=== PATIENT | male | born 1975 | race Caucasian/White ===

== ENCOUNTER → 2017-09-28 | Outpatient (CLI) | payer OTHER ==
[~2017-09-28] MED LIST: BUPR2MIS PO; CTP2 PO; LISI-725 PO; PRT40 PO
--- NOTE | 2017-09-28 15:27 | DIAGNOSTIC IMAGING REPORT ---
MRI OF THE LUMBAR SPINE WITHOUT CONTRAST CLINICAL HISTORY: Left leg pain and weakness. Degenerative disc disease. COMPARISON STUDY: Lumbar spine MRI December 13, 2014. TECHNIQUE: Utilizing a 1.5 Nica magnet and dedicated coil, multiplanar, multiecho imaging of the lumbar spine was performed without IV contrast. FINDINGS: For purposes of numbering on this exam, the L5-S1 disc space is assigned to axial image 23 of 25. There are left pedicle screws at the L4 and L5 levels with a laminectomy. There is been an interval L3-L4 laminectomy when compared to exam of December 13, 2014. There is no compression fracture. There is no suspicious marrow replacement. No intracanalicular mass or fluid collection is present. The conus terminates at the lower T12 level. Paravertebral soft tissues are unremarkable. L1-2: The central canal and neural foramen are patent. L2-3: The central canal and the neural foramen are patent. L3-4: There is mild central canal stenosis due to disc bulge which is improved since exam of December 13, 2014. There is severe left neural foraminal stenosis due to disc bulge, facet arthrosis and possible superimposed left foraminal disc protrusion. This has slightly increased since previous MRI. There is moderate narrowing of the right neural foramen. L4-5: The central canal is patent. There is mild narrowing of both neural foramen. L5-S1: There is disc bulge with a small superimposed central disc protrusion. There is mild narrowing of the central canal and lateral recesses. IMPRESSION: 1. Status post L4-L5 left pedicle screw fusion with laminectomy. Interval L3-L4 laminectomy since exam of December 13, 2014. Mild central canal narrowing at L3-L4 which has improved since previous exam. Mild central canal narrowing at L5-S1. 2. Severe left neural foraminal stenosis at L3-L4 due to disc bulge, facet arthrosis and suspected superimposed left foraminal disc protrusion. This has slightly increased since previous exam. Electronically signed by: Catracho Buck M.D. 09/28/2017 3:25 PM Dictated Date/Time: 09/28/2017 3:15 PM
== END | disposition home or self-care (01) ==
LOC: C.MRI 14:15
PROVIDERS: ATTEND Physician Assistant
DX: M51.9 Unspecified thoracic, thoracolumbar and lumbosacral intervertebral disc disorder (principal); M48.061 Spinal stenosis, lumbar region without neurogenic claudication; R29.898 Other symptoms and signs involving the musculoskeletal system; R29.2 Abnormal reflex

== ENCOUNTER 2017-10-25 17:24 | Emergency (ER) | payer OTHER ==
[~2017-10-25] VITALS: Ht 175.3 cm; Wt 118.9 kg
[2017-10-25 17:29] VITALS: TEMP 36.6; Ht 175.3 cm; Wt 118.9 kg
[2017-10-25] MEDS ORDERED: NRN600 PO (18:10)
[2017-10-25 20:30] LABS: ALBUMIN 3.5 gm/dl (3.4-5.0); CALCIUM 8.4 mg/dl (8.5-10.1); CREATININE 0.8 mg/dl (0.60-1.40); POTASSIUM 3.6 mmol/L (3.5-5.1)
--- NOTE | 2017-10-25 20:32 | DIAGNOSTIC IMAGING REPORT ---
L VENOUS DOPP LOWER EXT UNILAT HISTORY: 42 years-old Male L leg pain acute left leg pain COMPARISON: None available TECHNIQUE: Multiple real-time sonographic images of the left lower extremity deep venous structures were obtained assessing grayscale appearance, color and spectral flow FINDINGS: There is normal flow, phasicity, compressibility and augmentation of the left lower extremity deep venous structures. IMPRESSION: No sonographic evidence of deep venous thrombosis. The above report was generated using voice recognition software. It may contain grammatical, syntax or spelling errors. Electronically signed by: Asim Graff M.D. 10/25/2017 8:31 PM Dictated Date/Time: 10/25/2017 8:30 PM
[2017-10-25 20:33] LABS: TOTAL PROTEIN 7.5 gm/dl (6.4-8.2)
[2017-10-25 21:33] LABS: HEMATOCRIT 42.8 % (42-52); HEMOGLOBIN 15.1 g/dL (14.0-18.0); MEAN CELL VOLUME 85.1 fL (80-100); MEAN CORPUSCULAR HGB CONC 35.3 g/dl (32-36); MEAN PLATELET VOLUME 12.4 fL (7.4-10.4); PLATELET COUNT 122 K/uL (130-400); RED CELL DISTRIBUTION WIDTH CV 13.3 % (11.5-14.5); RED CELL DISTRIBUTION WIDTH SD 41.3 fL (36.4-46.3)
[2017-10-25] MEDS ORDERED: METH4PAK PO (21:37)
--- NOTE | 2017-10-25 21:39 | EMERGENCY ROOM VISIT NOTE ---
History First contact with patient: 17:55 Chief Complaint: LEG PAIN,LEG INJURY Stated Complaint: SEVERE PAIN IN LT THIGH GOING UP/DOWN LEG History of Present Illness The patient is a 42 year old male who presents to the Emergency Room via private vehicle with complaints of "severe pain in left thigh going up/down leg ". The patient states that he has a history of numerous back issues and surgeries. He notes that now he has pain in the left anterior thigh which has been exacerbated over the past 1.5 weeks. The pain is severe. It is rated as a 9/10. He notes he is taking Suboxone. He is Toradol with minimal relief. He states that it radiates from the hip to the left thigh. It only occurs with standing. He denies any swelling or redness. He notes that he has a recent MRI performed and is to see his surgeon in [place] November 16. He notes that Toradol does not seem to help. Heating pad does not help. There is no numbness or paresthesias. Review of Systems A complete 10-point Review of Systems was discussed with the patient, with pertinent positives and negatives listed in the History of Present Illness. All remaining Review of Systems questions can be considered negative unless otherwise specified. Past Medical/Surgical History Medical Problems: (1) Cholelithiasis (2) Chronic pain disorder (3) Hepatitis C (4) Hydrocephalus (5) Hypothyroidism (6) Lumbar spinal stenosis (7) Osteomyelitis Surgical Problems: (1) H/O colonoscopy (2) H/O varicose vein stripping Family History Cancer SISTER Diabetes mellitus MOTHER Heart disease FATHER (Fatal [place] 63 ) MOTHER (Fatal [place] 57) Hypertension BROTHER Lung disease Stroke MOTHER Social History Smoking Status: Former Smoker Alcohol Use: none Drug Use: none, heroin Marital Status: , in relationship Housing Status: lives with significant other Occupation Status: unemployed Current/Historical Medications Scheduled Buprenorphine Hcl-Naloxone Hcl (Suboxone 2-0.5 Mg), 8 MG PO BID Gabapentin (Gabapentin), 600 MG PO QID Lisinopril (Zestril), 20 MG PO QAM Methylprednisolone (Medrol Dosepak), 1 PKT PO DAILY Scheduled PRN Clonidine HCl (Clonidine HCl), 1.5 TAB PO HS PRN for Sleep Physical Exam Vital Signs Date Time Temp Pulse Resp B/P (MAP) Pulse Ox O2 Delivery O2 Flow Rate FiO2 10/25/17 21:45 75 18 182/85 96 Room Air 10/25/17 20:01 74 16 150/81 95 Room Air 10/25/17 17:29 36.6 75 16 126/83 95 Room Air Physical Exam VITAL SIGNS - Vital signs and nursing notes were reviewed. Stable. GENERAL -42-year-old male appearing his stated age who is in no acute distress. Communicates well with provider and answers questions appropriately. SKIN - Without rashes. No meningeal or petechial rash. HEAD - NC/AT. EYES - PERRL with EOMI bilaterally. Sclera anicteric. EARS - No deformities of external structures noted on gross examination bilaterally. NOSE - Midline and without cyanosis. No epistaxis or purulent drainage noted. MOUTH/OROPHARYNX - Without perioral cyanosis. NECK - Neck with FROM. LUNGS - Chest wall symmetric without accessory muscle use, intercostals retractions, or central cyanosis. Normal vesicular breath sounds CTA B/L. No wheezes, rales, or rhonchi appreciated. CARDIAC - RRR with S1/S2. No murmur, rubs, or gallops appreciated. ABDOMEN - Abdominal contour normal without pulsations or visible masses. BS normoactive all four quadrants. No tenderness, palpable masses, hepatosplenomegaly, or ascites noted. EXTREMITIES - No clubbing or peripheral cyanosis. No pretibial edema present. No thigh tenderness. +5/5 strength noted in UE/LE bilaterally. NEUROLOGIC - Cranial nerves II through XII grossly intact. Sensory intact to light touch throughout. Neurovascularly intact in the lower extremity. PSYCH - A&O and cooperates fully with examiner. Pt is very pleasant and interacts well with examiner. Medical Decision & Procedures ER Provider Diagnostic Interpretation: L VENOUS DOPP LOWER EXT UNILAT HISTORY: 42 years-old Male L leg pain acute left leg pain COMPARISON: None available TECHNIQUE: Multiple real-time sonographic images of the left lower extremity deep venous structures were obtained assessing grayscale appearance, color and spectral flow FINDINGS: There is normal flow, phasicity, compressibility and augmentation of the left lower extremity deep venous structures. IMPRESSION: No sonographic evidence of deep venous thrombosis. The above report was generated using voice recognition software. It may contain grammatical, syntax or spelling errors. Electronically signed by: Asim Graff M.D. 10/25/2017 8:31 PM Dictated Date/Time: 10/25/2017 8:30 PM Laboratory Results 10/25/17 20:52 Red Blood Count 5.03, Mean Corpuscular Volume 85.1, Mean Corpuscular Hemoglobin 30.0, Mean Corpuscular Hemoglobin Concent 35.3, Mean Platelet Volume 12.4, Neutrophils (%) (Auto) 47.9, Lymphocytes (%) (Auto) 40.8, Monocytes (%) (Auto) 7.9, Eosinophils (%) (Auto) 2.1, Basophils (%) (Auto) 0.9, Neutrophils # (Auto) 2.54, Lymphocytes # (Auto) 2.16, Monocytes # (Auto) 0.42, Eosinophils # (Auto) 0.11, Basophils # (Auto) 0.05 10/25/17 19:56 Test 10/25/17 19:56 10/25/17 20:52 Anion Gap 7.0 mmol/L (3-11) Est Creatinine Clear Calc Drug Dose 150.0 ml/min Estimated GFR () 125.9 Estimated GFR (Non- 108.6 BUN/Creatinine Ratio 8.2 (10-20) Calcium Level 8.4 mg/dl (8.5-10.1) Total Bilirubin 1.1 mg/dl (0.2-1) Aspartate Amino Transf (AST/SGOT) 220 U/L (15-37) Alanine Aminotransferase (ALT/SGPT) 394 U/L (12-78) Alkaline Phosphatase 129 U/L (45-117) Total Protein 7.5 gm/dl (6.4-8.2) Albumin 3.5 gm/dl (3.4-5.0) Globulin 4.0 gm/dl (2.5-4.0) Albumin/Globulin Ratio 0.9 (0.9-2) White Blood Count 5.30 K/uL (4.8-10.8) Red Blood Count 5.03 M/uL (4.7-6.1) Hemoglobin 15.1 g/dL (14.0-18.0) Hematocrit 42.8 % (42-52) Mean Corpuscular Volume 85.1 fL (80-100) Mean Corpuscular Hemoglobin 30.0 pg (25-34) Mean Corpuscular Hemoglobin Concent 35.3 g/dl (32-36) Platelet Count 122 K/uL (130-400) Mean Platelet Volume 12.4 fL (7.4-10.4) Neutrophils (%) (Auto) 47.9 % Lymphocytes (%) (Auto) 40.8 % Monocytes (%) (Auto) 7.9 % Eosinophils (%) (Auto) 2.1 % Basophils (%) (Auto) 0.9 % Neutrophils # (Auto) 2.54 K/uL (1.4-6.5) Lymphocytes # (Auto) 2.16 K/uL (1.2-3.4) Monocytes # (Auto) 0.42 K/uL (0.11-0.59) Eosinophils # (Auto) 0.11 K/uL (0-0.5) Basophils # (Auto) 0.05 K/uL (0-0.2) RDW Standard Deviation 41.3 fL (36.4-46.3) RDW Coefficient of Variation 13.3 % (11.5-14.5) Immature Granulocyte % (Auto) 0.4 % Immature Granulocyte # (Auto) 0.02 K/uL (0.00-0.02) Medical Decision Patient was seen and evaluated as above in room C9. He has left thigh pain. This appears to be radicular in nature likely stemming from his back. MRI was reviewed. Review was performed of nursing notes and vital signs. After obtaining a thorough history and physical examination the above work up was performed. Ultrasound was obtained in the left lower extremity to rule out DVT. This was negative. Again this is all likely radicular in nature. CBC reveals no concerning leukocytosis or anemia. Slight decrease in platelet count. This is felt to not be emergent. He is to follow with his family doctor. He will be given a Medrol Dosepak. He notes he has had this in the past with some relief. He was offered IV/IM Decadron and declined. The patient was educated upon management, had questions answered prior to discharge , and was discharged home in good condition. In the evaluation and treatment of this patient the following differential diagnoses were entertained: DVT, radicular symptoms, fracture, dislocation, strain, among others. Impression Primary Impression: Leg pain, left Departure Information Dispostion Home / Self-Care Condition GOOD Prescriptions Methylprednisolone (MEDROL DOSEPAK) 4 Mg Ronnell 1 PKT PO DAILY, #1 PKT Prov: Bamat, Tacho W., PA-C 10/25/17 Referrals Toy Horne M.D. (PCP) Patient Instructions My [facility] Additional Instructions You have been treated in the Emergency Department for Back Pain/leg pain. You may continue your regular medications. You have been prescribed a Medrol Dosepak. Take this medication as prescribed. You should take the COMPLETE 6-day course of this medication. This is an anti- inflammatory medicine that will help to minimize your symptoms. For pain control, you can use the following [id number] medicines: - Regular strength (325mg/tab) Tylenol (acetaminophen) 2 tabs every 4-6 hours as needed. Do not exceed 12 tablets in a 24 hour period. Avoid taking more than 3 grams (3000 mg) of Tylenol per day. This includes any other sources of acetaminophen you may take on a regular basis. - Regular strength (200 mg/tab) Advil (ibuprofen) 1-2 tabs every 4-6 hours as needed. Do not exceed a dose of 3200 mg per day. If this is an acute injury, ice can be applied to the area of pain for the first 3 days to help decrease pain and inflammation. After the first 3 days, a heating pad can be used over the area for continued soothing relief. You should schedule a follow-up appointment in 2-3 days with your Primary Care Provider for further evaluation and treatment of your back pain. Return to the Emergency Department if your current symptoms worsen despite treatment course outlined above, or if you develop any of the following symptoms : intractable pain despite aforementioned treatment course, loss of control of your bowel or bladder, numbness or tingling in your groin, or development of a fever.
[2017-10-25 21:45] VITALS: BP 182/85; PULSE 75; O2SAT 96
[2017-10-25 21:59] LABS: BASO % 0.9 %; BASO ABS # 0.05 K/uL (0-0.2); EOS % 2.1 %; EOS ABS # 0.11 K/uL (0-0.5); IG# 0.02 K/uL (0.00-0.02); LYMPH % 40.8 %; LYMPH ABS # 2.16 K/uL (1.2-3.4); MONO % 7.9 %; MONO ABS # 0.42 K/uL (0.11-0.59); NEUT % 47.9 %; NEUT ABS # 2.54 K/uL (1.4-6.5)
== END 2017-10-25 21:49 | disposition home or self-care (01) ==
LOC: C.EDB 17:25 → C.EDC 21:49
DX: M79.652 Pain in left thigh (principal); B19.20 Unspecified viral hepatitis C without hepatic coma; G91.9 Hydrocephalus, unspecified; E03.9 Hypothyroidism, unspecified; M48.061 Spinal stenosis, lumbar region without neurogenic claudication; F11.90 Opioid use, unspecified, uncomplicated; Z87.891 Personal history of nicotine dependence; Z79.899 Other long term (current) drug therapy

== ENCOUNTER 2025-05-19 03:28 | Inpatient (IN) ==
--- NOTE | 2025-05-19 03:59 | Emergency Department Note ---
Impression & Plan Septic shock, Diarrhea admit to the [facility] ED Provider Note NAME: SILVER GUERIN AGE: 50 SEX: Male INFORMANT: Patient ED PROVIDER(S): Tessa Key DO CHIEF COMPLAINT: Near syncope PLAN: Disposition: admit to the [facility] MEDICAL DECISION MAKING: This is a 50-year-old male patient underwent spinal surgery 1 week ago who had vomiting and diarrhea since yesterday and a near syncopal event on the toilet today. Patient does admit to drinking a beer last evening and using Toradol for his pain. Patient's found him on the toilet overnight tonight after an episode of vomiting and diarrhea. He was quite lethargic. EMS was called. BSG was 172. He was quite cold with an axillary temp of 92 degrees. EMS and the explained that the patient had spinal revision surgery 1 week ago and then was hospitalized again just a couple of days ago for postlaminectomy syndrome. The states that he was doing well until last evening when he developed vomiting and diarrhea and nearly passed out on the toilet. On presentation here to the emergency department, the patient was hypotensive and lethargic. He had multiple episodes of diarrhea, dry heaving, and was hypothermic. The patient was felt to be septic with a lactate of 4.5. Initially source was unknown. He was given IV cefepime and then IV vancomycin. The dressings to his back were taken down but appeared unremarkable. He adamantly denied any pain to his back. He continued to have massive amounts of diarrhea. Stool was tested and was negative for C. difficile.. Other laboratory testing revealed a white blood cell count of 18.7. He was hemoconcentrated with a hemoglobin of 19.3 and hematocrit of 59. Creatinine was up at 1.87. He was bolused with 2.5 L of saline which is more than 30 mL/kg of crystalloid. Procalcitonin was normal. Alcohol level was negative. Troponin was elevated at 79.5. There were no ischemic changes noted on his EKG. Transaminases were elevated. Chest x-ray was unremarkable. urinalysis had no obvious signs of infection. Upper respiratory [employer] testing was positive for COVID. [facility] will [facility] for further inpatient care and management of septic shock. Patient will go on for CT scan testing of his chest and abdomen/pelvis. Care/management discussed with: The patient's was at the bedside, validation manager and [facility] T[facility] Nursing notes: reviewed and agree with them. Vital Signs: reviewed and remarkable for hypotension and hypothermia Additional History obtained from: EMS and the patient's Prior/ Outside/ External records reviewed: I reviewed operative records as well as recent inpatient records from his hospitalization for postlaminectomy syndrome Differential Diagnosis: sepsis, septic shock, postsurgical complication, C. difficile colitis, pneumonia, urosepsis, COVID-pneumonia Diagnostics, independently interpreted by me: ECG: Normal sinus rhythm at a rate of [address] segment elevation or signs of ischemia. There is no ectopy. Cardiac Monitoring: Normal sinus rhythm at a rate of 98 Imaging studies: chest x-ray: No acute pulmonary infiltrate or consolidation HPI: 50 year old Male arrives for evaluation of vomiting and diarrhea. patient was found semiresponsive on the toilet after an episode of vomiting and diarrhea. his called EMS because he was extremely lethargic and semiresponsive PAST MEDICAL HISTORY: See Below, PAST SURGICAL HISTORY: recent revision of spinal surgery, SOCIAL HISTORY: lives with his , previous opioid abuse, marijuana use, alcohol use HOME MEDICATIONS: see list ALLERGIES: see list VITALS: See Below PHYSICAL EXAMINATION: HEENT: Head - normocephalic and atraumatic. Pupils are equal, round, and reactive to light. Extraocular eye muscles are intact and sclera are anicteric. Nose - moist nasal mucosa without discharge. Mouth - moist buccal mucosa. Oropharynx is nonerythematous and there is no tonsillar exudate or edema noted. Neck: Supple; no JVD, nuchal rigidity, cervical lymphadenopathy. Heart: Regular rate and rhythm. There is a normal S1 and S2 with no murmurs, clicks, or gallops appreciated. Lungs: Clear to auscultation bilaterally with no wheezes, rales, or rhonchi. Abdomen: Soft, Moderately distended and slightly tender with hyperactive bowel sounds. There are no palpable pulsatile masses or hepatosplenomegaly. There is no guarding, rigidity, or rebound noted. Extremities: No evidence of cyanosis, clubbing, or edema. There are easily palpable peripheral pulses. Neuro:The patient Lethargic but moving all 4 extremities. back: 3 bandages were removed and Steri-Strips were in place. There is no surrounding erythema or significant warmth or edema to the surgical sites. They appear to be well-healing. There is no drainage. Emergency department treatment: Septic protocol; IV normal saline bolus-30 mL/kg according to ideal body weight; IV Zofran; IV cefepime; IV vancomycin Emergency department course: The patient was emergently evaluated in room A-12. A septic protocol was performed. A complete history and physical was performed. 2 IVs were established. A stool specimen was obtained. A portable chest x-ray was performed. He was bolused with IV normal saline solution 30 mL/kg A urine specimen was obtained. Patient was given a dose of IV Zofran. He was given a dose of IV cefepime.. He was given a dose of IV vancomycin. I discussed the case with the [facility] Hospitalist. I kept the patient's abreast of the situation. I have personally spent greater than 70 minutes of critical care time in the direct management of this patient. This includes bedside care, interpretation of diagnostic studies, and testing, discussion with consultants, patient, and family members, and other required patient management activities. This 70 minutes is in excess of all separately billable procedures. Past Med/Surg History Problem List (Updated 05/19/25 @ 15:17 by Tessa Key DO) Diarrhea (Acute) Septic shock (Acute) Severe sepsis Postlaminectomy syndrome of lumbar region Chronic pain disorder (Chronic) Hypothyroidism (Chronic) Lumbar spinal stenosis (Chronic) Medical History Obesity Hypertension Cardiac murmur "Born with it" [place] DSE 09/2015: Trace MR/TR No murmur noted at PAT visit 04/11/25 Hx of colonic polyps Chronic pain disorder Hypothyroidism Per patient, patient unsure Hydrocephalus s/p surgery 10+ years ago No issues since Hepatitis C Hx, s/p 12 week treatment completion 5 years ago "Cleared" Osteomyelitis of right humerus Remote hx, treated "right humerus Staph aureus (MSSA) 2000" Lumbar spinal stenosis Surgical History Hx of brain surgery Drained fluid r/t hydrocephalus, no shunt (10+ years ago) Hx of laminectomy x2 S/P insertion of spinal cord stimulator Advised to bring remote DOS 2019 Hx of colonoscopy with polypectomy History of cholecystectomy History of varicose vein stripping Left leg (10+ years) Family History Other Heart disease Hypertension Social History Smoking Status: Unknown if ever smoked Tobacco Type: Cigarettes and Smokeless Tobacco (Dip or Chew) Second Hand Exposure: No; Do You Dip or Chew Tobacco: Yes (Recently quit (~8 days ago)- Advised); Hx Alcohol Use: Yes Alcohol type: beer Hx Substance Use: No Preferred Language: [place] Communication Ability: Effective Certified Legal Secretary Specialist Required: No Beliefs That Will Affect Care: None marital status: Current Living Situation: Spouse current occupational status: unemployed Feels Safe at Home: Yes Assistive Devices: None Allergies Allergies Allergy/AdvReac Type Severity Reaction Status Date / Time adhesive Allergy Intermediate Redness, Verified 05/10/25 06:47 skin irritation, blistering (with group home use) latex Allergy Intermediate Rash Verified 05/10/25 06:47 Home Meds Home Medications Medication Instructions Recorded Confirmed clonidine HCl 0.1 mg tablet 0.1 mg PO BID PRN Sleep 06/18/18 05/19/25 dicyclomine 10 mg capsule 10 mg PO QID PRN Abdominal 06/18/18 05/19/25 Pain/Cramping Lactobacillus acidophilus and 1 cap PO DAILY 04/02/25 05/19/25 rhamnosus 15 billion cell capsule (Probiotic) carvedilol 6.25 mg tablet 6.25 mg PO QAM 04/02/25 05/19/25 cyclobenzaprine 10 mg tablet 10 mg PO UD PRN muscle spasms 04/02/25 05/19/25 gabapentin 600 mg tablet 1,200 mg PO QAM 04/02/25 05/19/25 lisinopril 20 mg tablet 20 mg PO QAM 04/02/25 05/19/25 buprenorphine HCl 8 mg sublingual 8 mg sublingual TID 05/19/25 05/19/25 tablet Results & Data (ED) Vital Signs Vital Signs - 24 hr 05/19/25 03:36 05/19/25 03:36 05/19/25 03:47 Temperature 33.3 C L Temperature Source Axillary Pulse Rate 78 98 H Pulse Rate from SpO2 Sensor Respiratory Rate 24 Respiratory Effort / Characteristics Non-Labored Respiratory Depth Normal Blood Pressure 129/88 Blood Pressure Mean 101 Pulse Oximetry 96 Oxygen Delivery Method Nasal Cannula Oxygen Flow Rate 4 Sepsis Recent Fever Within 48 Hours No Sepsis New/Unexplained Change in Mental Status Yes Sepsis Action Taken by Nursing Physician Notified Oxygen Flow Rate - Titration Pulse Oximetry Post Tiitration 05/19/25 03:47 05/19/25 03:47 05/19/25 03:51 Temperature Temperature Source Pulse Rate 98 H Pulse Rate from SpO2 Sensor 99 H Respiratory Rate 17 Respiratory Effort / Characteristics Respiratory Depth Blood Pressure Blood Pressure Mean Pulse Oximetry 88 L 99 Oxygen Delivery Method Nasal Cannula Room Air Nasal Cannula Oxygen Flow Rate 3 0 Sepsis Recent Fever Within 48 Hours Sepsis New/Unexplained Change in Mental Status Sepsis Action Taken by Nursing Oxygen Flow Rate - Titration 3 Pulse Oximetry Post Tiitration 97 05/19/25 03:56 05/19/25 04:03 05/19/25 04:03 Temperature Temperature Source Pulse Rate Pulse Rate from SpO2 Sensor Respiratory Rate Respiratory Effort / Characteristics Respiratory Depth Blood Pressure 88/71 L 125/88 125/88 Blood Pressure Mean 75 101 101 Pulse Oximetry Oxygen Delivery Method Oxygen Flow Rate Sepsis Recent Fever Within 48 Hours Sepsis New/Unexplained Change in Mental Status Sepsis Action Taken by Nursing Oxygen Flow Rate - Titration Pulse Oximetry Post Tiitration 05/19/25 04:12 05/19/25 04:24 05/19/25 04:26 Temperature Temperature Source Pulse Rate 101 H 84 Pulse Rate from SpO2 Sensor 98 H 85 Respiratory Rate 20 20 Respiratory Effort / Characteristics Respiratory Depth Blood Pressure Blood Pressure Mean Pulse Oximetry 96 96 97 Oxygen Delivery Method Room Air Oxygen Flow Rate Sepsis Recent Fever Within 48 Hours Sepsis New/Unexplained Change in Mental Status Sepsis Action Taken by Nursing Oxygen Flow Rate - Titration Pulse Oximetry Post Tiitration 05/19/25 04:30 05/19/25 04:30 05/19/25 04:31 Temperature 36.2 C L Temperature Source Rectal Pulse Rate 83 Pulse Rate from SpO2 Sensor 84 Respiratory Rate 25 H Respiratory Effort / Characteristics Respiratory Depth Blood Pressure 91/64 L Blood Pressure Mean 76 Pulse Oximetry 92 Oxygen Delivery Method Oxygen Flow Rate Sepsis Recent Fever Within 48 Hours Sepsis New/Unexplained Change in Mental Status Sepsis Action Taken by Nursing Oxygen Flow Rate - Titration Pulse Oximetry Post Tiitration 05/19/25 04:41 05/19/25 04:41 05/19/25 04:46 Temperature Temperature Source Pulse Rate 83 Pulse Rate from SpO2 Sensor 83 Respiratory Rate 23 Respiratory Effort / Characteristics Respiratory Depth Blood Pressure 102/55 L 59/35 L Blood Pressure Mean 73 45 Pulse Oximetry 96 Oxygen Delivery Method Oxygen Flow Rate Sepsis Recent Fever Within 48 Hours Sepsis New/Unexplained Change in Mental Status Sepsis Action Taken by Nursing Oxygen Flow Rate - Titration Pulse Oximetry Post Tiitration 05/19/25 04:48 05/19/25 04:48 05/19/25 04:53 Temperature Temperature Source Pulse Rate 80 Pulse Rate from SpO2 Sensor 78 Respiratory Rate 17 Respiratory Effort / Characteristics Respiratory Depth Blood Pressure 97/59 L 97/59 L Blood Pressure Mean 77 77 Pulse Oximetry 97 Oxygen Delivery Method Oxygen Flow Rate Sepsis Recent Fever Within 48 Hours Sepsis New/Unexplained Change in Mental Status Sepsis Action Taken by Nursing Oxygen Flow Rate - Titration Pulse Oximetry Post Tiitration 05/19/25 04:55 05/19/25 05:00 05/19/25 05:11 Temperature Temperature Source Pulse Rate 78 77 Pulse Rate from SpO2 Sensor 81 78 Respiratory Rate 15 18 Respiratory Effort / Characteristics Non-Labored Respiratory Depth Normal Blood Pressure Blood Pressure Mean Pulse Oximetry 98 Oxygen Delivery Method Oxygen Flow Rate Sepsis Recent Fever Within 48 Hours Sepsis New/Unexplained Change in Mental Status Sepsis Action Taken by Nursing Oxygen Flow Rate - Titration Pulse Oximetry Post Tiitration 05/19/25 05:14 05/19/25 05:18 05/19/25 05:18 Temperature Temperature Source Pulse Rate 76 Pulse Rate from SpO2 Sensor 76 Respiratory Rate 19 Respiratory Effort / Characteristics Respiratory Depth Blood Pressure 89/59 L 89/59 L Blood Pressure Mean 67 67 Pulse Oximetry 98 Oxygen Delivery Method Oxygen Flow Rate Sepsis Recent Fever Within 48 Hours Sepsis New/Unexplained Change in Mental Status Sepsis Action Taken by Nursing Oxygen Flow Rate - Titration Pulse Oximetry Post Tiitration 05/19/25 05:20 05/19/25 05:21 05/19/25 05:23 Temperature Temperature Source Pulse Rate 74 Pulse Rate from SpO2 Sensor 78 Respiratory Rate 16 Respiratory Effort / Characteristics Respiratory Depth Blood Pressure 103/62 Blood Pressure Mean 76 Pulse Oximetry 98 Oxygen Delivery Method Nasal Cannula Oxygen Flow Rate Sepsis Recent Fever Within 48 Hours Sepsis New/Unexplained Change in Mental Status Sepsis Action Taken by Nursing Oxygen Flow Rate - Titration Pulse Oximetry Post Tiitration 05/19/25 05:26 05/19/25 05:30 05/19/25 05:30 Temperature Temperature Source Pulse Rate 74 Pulse Rate from SpO2 Sensor 75 Respiratory Rate 18 Respiratory Effort / Characteristics Respiratory Depth Blood Pressure 134/68 134/68 Blood Pressure Mean 94 94 Pulse Oximetry 98 Oxygen Delivery Method Oxygen Flow Rate Sepsis Recent Fever Within 48 Hours Sepsis New/Unexplained Change in Mental Status Sepsis Action Taken by Nursing Oxygen Flow Rate - Titration Pulse Oximetry Post Tiitration 05/19/25 05:38 05/19/25 05:41 05/19/25 06:03 Temperature Temperature Source Pulse Rate 73 75 Pulse Rate from SpO2 Sensor 74 82 Respiratory Rate 24 15 Respiratory Effort / Characteristics Non-Labored Respiratory Depth Normal Blood Pressure 122/80 113/74 Blood Pressure Mean 94 87 Pulse Oximetry 95 95 Oxygen Delivery Method Nasal Cannula Oxygen Flow Rate Sepsis Recent Fever Within 48 Hours Sepsis New/Unexplained Change in Mental Status Sepsis Action Taken by Nursing Oxygen Flow Rate - Titration Pulse Oximetry Post Tiitration 05/19/25 06:18 05/19/25 06:36 Temperature Temperature Source Pulse Rate 79 84 Pulse Rate from SpO2 Sensor 80 76 Respiratory Rate 16 19 Respiratory Effort / Characteristics Respiratory Depth Blood Pressure 119/69 119/88 Blood Pressure Mean 85 98 Pulse Oximetry 100 100 Oxygen Delivery Method Oxygen Flow Rate Sepsis Recent Fever Within 48 Hours Sepsis New/Unexplained Change in Mental Status Sepsis Action Taken by Nursing Oxygen Flow Rate - Titration Pulse Oximetry Post Tiitration Laboratory Data 05/19/25 04:15 05/19/25 04:15 Lab Results 05/19/25 05/19/25 05/19/25 Range/Units 04:15 05:04 05:06 WBC 18.70 H (4.8-10.8) K/ul RBC 6.72 H (4.70-6.10) M/uL Hgb 19.3 H (14.0-18.0) g/dl Hct 59.1 H (42.0-52.0) % MCV 87.9 (80.0-100.0) fL MCH 28.7 (25.0-34.0) pg MCHC 32.7 (32.0-36.0) g/dL RDW Std Deviation 42.0 (36.4-46.3) fL RDW Coeff of Chelo 13.9 (11.5-14.5) % Plt Count 278 (130-400) K/uL MPV 11.1 (9.4-12.4) fL Immature Gran % (Auto) 1.7 % Neut % (Auto) 74.4 % Lymph % (Auto) 19.1 % Saunders % (Auto) 2.4 % Eos % (Auto) 1.8 % Baso % (Auto) 0.6 % Neut # (Auto) 13.91 H (1.40-6.50) K/uL Lymph # (Auto) 3.58 H (1.20-3.40) K/uL Saunders # (Auto) 0.44 (0.11-0.59) K/uL Eos # (Auto) 0.33 (0.00-0.50) K/uL Baso # (Auto) 0.12 (0.00-0.20) K/uL Immature Gran # (Auto) 0.32 H (0.01-0.20) K/uL Sodium 135 L (136-145) mmol/L Potassium 4.3 (3.5-5.1) mmol/L Chloride 94 L (98-107) mmol/L Carbon Dioxide 26 (21-32) mmol/L Anion Gap 15 H (3-11) BUN 17 (6-23) mg/dl Creatinine 1.87 H (0.6-1.4) mg/dl Est Cr Clr Drug Dosing 59.2 ml/min eGFR 42.73 BUN/Creatinine Ratio 9.1 L (10-20) Glucose 90 (70-99(Fasting)) mg/dl Lactate 4.5 H* (0.4-2.0) mmol/L Calcium 10.1 (8.6-10.3) mg/dl Magnesium 2.8 H (1.7-2.4) mg/dl Total Bilirubin 1.0 (0.2-1.0) mg/dl Direct Bilirubin TNP AST 55 H (13-39) U/L ALT 83 H (7-52) U/L Alkaline Phosphatase 107 H (34-104) U/L Troponin I High Sens 79.5 H* (0-20) pg/ml Total Protein 7.9 (6.0-8.3) gm/dl Albumin 4.5 (3.4-5.0) gm/dl Procalcitonin 0.24 (0-0.5) ng/ml Stl C. cayetanensis PCR (NotDetected) Stool Rotavirus A PCR (NotDetected) Stl Adenov F 40/41 PCR (NotDetected) Stool Astrovirus (PCR) (NotDetected) Stool Campylobacter PCR (NotDetected) Stl C. diff Tox B Gene (Neg) Stl C. diff 027-NAP1-BI Stool Cryptosporidium PCR (NotDetected) Stl E.coli Shiga Tox PCR (NotDetected) Stl Enterotoxigenic E PCR (NotDetected) Stool EPEC (PCR) (NotDetected) Stool EAEC (PCR) (NotDetected) Stl E. histolytica PCR (NotDetected) Stool Giardia Lamblia PCR (NotDetected) Stool Salmonella PCR (NotDetected) Stool Sapovirus (PCR) (NotDetected) Stl P. shigelloides PCR (NotDetected) Stl Shigella/EIEC PCR (NotDetected) St Y.enterocolitica PCR (NotDetected) Stool Vibrio (PCR) (NotDetected) Stl Vibrio cholerae PCR (NotDetected) Stl Norovirus GI/GII PCR (NotDetected) Ethyl Alcohol mg/dL < 10.0 (<10.0) mg/dl Adenovirus (PCR) Not Detected (NotDetected) B. pertussis DNA (PCR) Not Detected (NotDetected) B.parapertussis DNA PCR Not Detected (NotDetected) C. pneumoniae DNA (PCR) Not Detected (NotDetected) Coronavirus OC43 (PCR) Not Detected (NotDetected) Coronavirus HKU1 (PCR) Not Detected (NotDetected) Coronavirus 229E (PCR) Not Detected (NotDetected) SARS-CoV-2 (PCR) DETECTED A (NotDetected) Coronavirus NL63 (PCR) Not Detected (NotDetected) Human Metapneumovir PCR Not Detected (NotDetected) Influenza Type A (PCR) Not Detected (NotDetected) Influenza Type B (PCR) Not Detected (NotDetected) M. pneumoniae (PCR) Not Detected (NotDetected) Parainfluenza 1 (PCR) Not Detected (NotDetected) Parainfluenza 2 (PCR) Not Detected (NotDetected) Parainfluenza 3 (PCR) Not Detected (NotDetected) Parainfluenza 4 (PCR) Not Detected (NotDetected) RSV (PCR) Not Detected (NotDetected) Entero/Rhino (PCR) Not Detected (NotDetected) 05/19/25 Range/Units 06:01 WBC (4.8-10.8) K/ul RBC (4.70-6.10) M/uL Hgb (14.0-18.0) g/dl Hct (42.0-52.0) % MCV (80.0-100.0) fL MCH (25.0-34.0) pg MCHC (32.0-36.0) g/dL RDW Std Deviation (36.4-46.3) fL RDW Coeff of Chelo (11.5-14.5) % Plt Count (130-400) K/uL MPV (9.4-12.4) fL Immature Gran % (Auto) % Neut % (Auto) % Lymph % (Auto) % Saunders % (Auto) % Eos % (Auto) % Baso % (Auto) % Neut # (Auto) (1.40-6.50) K/uL Lymph # (Auto) (1.20-3.40) K/uL Saunders # (Auto) (0.11-0.59) K/uL Eos # (Auto) (0.00-0.50) K/uL Baso # (Auto) (0.00-0.20) K/uL Immature Gran # (Auto) (0.01-0.20) K/uL Sodium (136-145) mmol/L Potassium (3.5-5.1) mmol/L Chloride (98-107) mmol/L Carbon Dioxide (21-32) mmol/L Anion Gap (3-11) BUN (6-23) mg/dl Creatinine (0.6-1.4) mg/dl Est Cr Clr Drug Dosing ml/min eGFR BUN/Creatinine Ratio (10-20) Glucose (70-99(Fasting)) mg/dl Lactate (0.4-2.0) mmol/L Calcium (8.6-10.3) mg/dl Magnesium (1.7-2.4) mg/dl Total Bilirubin (0.2-1.0) mg/dl Direct Bilirubin AST (13-39) U/L ALT (7-52) U/L Alkaline Phosphatase (34-104) U/L Troponin I High Sens (0-20) pg/ml Total Protein (6.0-8.3) gm/dl Albumin (3.4-5.0) gm/dl Procalcitonin (0-0.5) ng/ml Stl C. cayetanensis PCR Not Detected (NotDetected) Stool Rotavirus A PCR Not Detected (NotDetected) Stl Adenov F 40/41 PCR Not Detected (NotDetected) Stool Astrovirus (PCR) Not Detected (NotDetected) Stool Campylobacter PCR Not Detected (NotDetected) Stl C. diff Tox B Gene Negative Cdiff Gene (Neg) Stl C. diff 027-NAP1-BI NEGATIVE Stool Cryptosporidium PCR Not Detected (NotDetected) Stl E.coli Shiga Tox PCR Not Detected (NotDetected) Stl Enterotoxigenic E PCR Not Detected (NotDetected) Stool EPEC (PCR) Not Detected (NotDetected) Stool EAEC (PCR) Not Detected (NotDetected) Stl E. histolytica PCR Not Detected (NotDetected) Stool Giardia Lamblia PCR Not Detected (NotDetected) Stool Salmonella PCR Not Detected (NotDetected) Stool Sapovirus (PCR) Not Detected (NotDetected) Stl P. shigelloides PCR Not Detected (NotDetected) Stl Shigella/EIEC PCR Not Detected (NotDetected) St Y.enterocolitica PCR Not Detected (NotDetected) Stool Vibrio (PCR) Not Detected (NotDetected) Stl Vibrio cholerae PCR Not Detected (NotDetected) Stl Norovirus GI/GII PCR Not Detected (NotDetected) Ethyl Alcohol mg/dL (<10.0) mg/dl Adenovirus (PCR) (NotDetected) B. pertussis DNA (PCR) (NotDetected) B.parapertussis DNA PCR (NotDetected) C. pneumoniae DNA (PCR) (NotDetected) Coronavirus OC43 (PCR) (NotDetected) Coronavirus HKU1 (PCR) (NotDetected) Coronavirus 229E (PCR) (NotDetected) SARS-CoV-2 (PCR) (NotDetected) Coronavirus NL63 (PCR) (NotDetected) Human Metapneumovir PCR (NotDetected) Influenza Type A (PCR) (NotDetected) Influenza Type B (PCR) (NotDetected) M. pneumoniae (PCR) (NotDetected) Parainfluenza 1 (PCR) (NotDetected) Parainfluenza 2 (PCR) (NotDetected) Parainfluenza 3 (PCR) (NotDetected) Parainfluenza 4 (PCR) (NotDetected) RSV (PCR) (NotDetected) Entero/Rhino (PCR) (NotDetected) Administered Medications Buprenorphine/Naloxone (Buprenorphine/Naloxone 8/2 Mg Tab) 1 tab SL TID JULEE Stop: 06/18/25 13:59 Last Admin: 05/19/25 14:35 Dose: 1 tab Documented By: EDWINA Dexamethasone 6 mg/ Syringe 1.5 mls @ 1 mls/min IV DAILY JULEE Stop: 05/29/25 08:19 Last Admin: 05/19/25 09:47 Dose: 1 mls/min Documented By: EDWINA Cefepime HCl (Maxipime 2000mg) 2,000 mg in 20 mls @ 5 mls/min IV Q8H JULEE; Protocol Stop: 05/21/25 13:59 Last Admin: 05/19/25 14:35 Dose: 5 mls/min Documented By: EDWINA Metronidazole (Flagyl) 500 mg in 100 mls @ 100 mls/hr IV Q8H JULEE; Protocol Stop: 05/23/25 13:59 Last Admin: 05/19/25 14:39 Dose: 100 mls/hr Documented By: EDWINA Lactobacillus Acidophilus (Advanced Probiotic 625 Mg Capsule) 1,250 mg PO DAILY JULEE Stop: 06/18/25 13:29 Last Admin: 05/19/25 14:35 Dose: 1,250 mg Documented By: EDWINA Discontinued Medications Sodium Chloride (Nss) 500 mls @ 999 mls/hr IV .Q31M ONE Stop: 05/19/25 04:17 Last Infusion: 05/19/25 04:55 Dose: Infused Documented By: Admin: 05/19/25 04:22 Dose: 999 mls/hr Documented By: SADE Sodium Chloride (Nss) 500 mls @ 999 mls/hr IV .Q31M ONE Stop: 05/19/25 05:25 Last Infusion: 05/19/25 05:32 Dose: Infused Documented By: Admin: 05/19/25 04:56 Dose: 999 mls/hr Documented By: SADE Cefepime HCl (Maxipime 2000mg) 2,000 mg in 20 mls @ 5 mls/min IV NOW STA; Protocol Stop: 05/19/25 05:00 Last Admin: 05/19/25 05:11 Dose: 5 mls/min Documented By: SADE Sodium Chloride (Nss) 1,000 mls @ 999 mls/hr IV .Q1H1M JULEE Stop: 05/19/25 07:00 Last Infusion: 05/19/25 07:49 Dose: Infused Documented By: MARIA LUISA Admin: 05/19/25 05:34 Dose: 999 mls/hr Documented By: Infusion: 05/19/25 05:34 Dose: Infused Documented By: Admin: 05/19/25 05:12 Dose: 999 mls/hr Documented By: SADE Vancomycin HCl 2,750 mg/ (Sodium Chloride) 555 mls @ 200 mls/hr IV NOW ONE Stop: 05/19/25 07:59 Last Infusion: 05/19/25 09:47 Dose: Infused Documented By: Admin: 05/19/25 05:41 Dose: 200 mls/hr Documented By: SADE Metronidazole (Flagyl) 500 mg in 100 mls @ 100 mls/hr IV NOW STA; Protocol Stop: 05/19/25 06:51 Last Infusion: 05/19/25 08:39 Dose: Infused Documented By: Admin: 05/19/25 07:17 Dose: 100 mls/hr Documented By: MARIA LUISA Lactated Ringer's (Lr) 1,000 mls @ 200 mls/hr IV .Q5H ONE Stop: 05/19/25 12:07 Last Infusion: 05/19/25 13:01 Dose: Infused Documented By: Admin: 05/19/25 07:46 Dose: 200 mls/hr Documented By: MARIA LUISA Ondansetron HCl (Ondansetron Inj 2 Mg/Ml 2 Ml Vial) 4 mg IV NOW STA Stop: 05/19/25 03:48 Last Admin: 05/19/25 04:22 Dose: 4 mg Documented By: SADE Imaging Data Radiologist's Impression: Chest X-Ray 05/19/25 03:47 EXAM: XR chest 1V portable CLINICAL HISTORY: Sepsis TECHNIQUE: A radiograph of the chest was acquired. COMPARISON: 04/11/2025 11:14:18 ASSOCIATE PROFESSOR OF RADIOLOGY. FINDINGS: The left costophrenic angle is not included in the field of view. The lungs are clear and well expanded, with no pulmonary infiltrate or pleural effusion. The cardiomediastinal silhouette is within normal limits. There is no acute osseous abnormality. IMPRESSION: 1. No acute cardiopulmonary disease. Electronically signed by Morris Waggoner 05-19-2025 05:45 AM Discharge Plan Visit Data Chief Complaint: Lethargic Stated Complaint: Lethargic, Diarrhea, Vomiting ED Provider: Tessa Key Discharge Problem: Septic shock, Diarrhea Patient Disposition: Admitted As Inpatient Condition: Critical Discharge Instructions Interventions: ED Discharge Assessment Last Done: 05/19/25 08:28
[2025-05-19] MEDS: ONDANSETRON INJ 2 MG/ML 2 ML VIAL IV STA (04:22)
[2025-05-19] MEDS: SODIUM CHLORIDE 0.9% 500 ML IV ONE ×2 (04:22→04:56)
[2025-05-19 04:46] LABS: Hematocrit (blood only) 59.1 % (42.0-52.0); Hemoglobin 19.3 g/dl (14.0-18.0); Immature Granulocytes # (auto) 0.32 K/uL (0.01-0.20); Immature Granulocytes % (auto) 1.7 %; Mean Corpuscular Hemoglobin 28.7 pg (25.0-34.0); Mean Corpuscular Volume 87.9 fL (80.0-100.0); Platelet Count 278 K/uL (130-400); RDW Standard Deviation 42.0 fL (36.4-46.3); Red Blood Count 6.72 M/uL (4.70-6.10); White Blood Count 18.70 K/ul (4.8-10.8)
[2025-05-19 05:06] LABS: Alanine Aminotransferase 83 U/L (7-52); Albumin Level 4.5 gm/dl (3.4-5.0); Alkaline Phosphatase 107 U/L (34-104); Anion Gap 15 (3-11); Bilirubin,Total 1.0 mg/dl (0.2-1.0); Blood Urea Nitrogen 17 mg/dl (6-23); Calcium 10.1 mg/dl (8.6-10.3); Carbon Dioxide 26 mmol/L (21-32); Chloride 94 mmol/L (98-107); Creatinine Clr Calc Pharmacy 59.2 ml/min; Glucose 90 mg/dl (70-99(Fasting)); Magnesium 2.8 mg/dl (1.7-2.4); Potassium 4.3 mmol/L (3.5-5.1); Sodium 135 mmol/L (136-145); Total Protein 7.9 gm/dl (6.0-8.3)
[2025-05-19] MEDS: CEFEPIME 2000MG 2,000 MG/20 ML SYR IV STA (05:11)
[2025-05-19] MEDS: SODIUM CHLORIDE 0.9% 1,000 ML IV SCH (05:12)
[2025-05-19] MEDS ORDERED: VANCOMYCIN CONSULT ACTIVE PRN ×2 (05:13→13:27)
[2025-05-19] MEDS: VANCOMYCIN HCL 2,750 MG in SODIUM CHLORIDE 0.9% 500 ML IV ONE (05:41)
--- NOTE | 2025-05-19 05:46 | XRay Report ---
EXAM: XR chest 1V portable CLINICAL HISTORY: Sepsis TECHNIQUE: A radiograph of the chest was acquired. 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 FINDINGS: The left costophrenic angle is not included in the field of view. The lungs are clear and well expanded, with no pulmonary infiltrate or pleural effusion. The cardiomediastinal silhouette is within normal limits. There is no acute osseous abnormality. IMPRESSION: 1. No acute cardiopulmonary disease. Electronically signed by Morris Waggoner 05-19-2025 05:45 AM
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
[2025-05-19] MEDS ORDERED: PROMETHAZINE 12.5 MG/50.5 ML BAG IV PRN (07:06)
[2025-05-19 07:17] LABS: Chlamydia pneumoniae PCR Not Detected (NotDetected); Coronavirus 229E PCR Not Detected (NotDetected); Coronavirus CoV-2 (COVID19)PCR DETECTED (NotDetected); Coronavirus HKU1 PCR Not Detected (NotDetected); Coronavirus NL63 PCR Not Detected (NotDetected); Coronavirus OC43PCR Not Detected (NotDetected); Human Metapneumovirus PCR Not Detected (NotDetected); Parainfluenza Virus 1 PCR Not Detected (NotDetected); Parainfluenza Virus 2 PCR Not Detected (NotDetected); Parainfluenza Virus 3 PCR Not Detected (NotDetected); Parainfluenza Virus 4 PCR Not Detected (NotDetected); Respiratory Syncytial VirusPCR Not Detected (NotDetected); Rhinovirus/Enterovirus PCR Not Detected (NotDetected)
[2025-05-19] MEDS: metroNIDAZOLE 500 MG/100 ML BAG IV STA (07:17)
[2025-05-19 07:24] LABS: Cdiff Toxin B Gene (2yr or >) Negative Cdiff Gene (Neg)
[2025-05-19 07:28] LABS: Base Excess VBG -0.6 mEq/L; HCO3 VBG 29 mmol/L; Oxygen Saturation VBG < 60.0 %; PCO2 VBG 73 mmHg (38-50); PO2 VBG 24 mmHg; pH VBG 7.21 (7.36-7.41)
[2025-05-19] MEDS: LACTATED RINGER'S 1,000 ML IV ONE (07:46)
[2025-05-19 07:54] LABS: INR 1.4 (0.9-1.1); Prothrombin Time 14.3 Seconds (9.0-12.0)
[2025-05-19 07:56] LABS: Adenovirus F 40/41 PCR Not Detected (NotDetected); Campylobacter PCR Not Detected (NotDetected); Enteroaggregative E.coli(EAEC) Not Detected (NotDetected); Shiga-like Toxin E.coli (STEC) Not Detected (NotDetected); Vibrio species PCR Not Detected (NotDetected)
[2025-05-19 08:03] LABS: Creatine Kinase 90.0 U/L (30-223)
--- NOTE | 2025-05-19 08:11 | CT Scan Report ---
CT chest diagnostic wo con CT DOSE: 1803.45 mGy.cm CLINICAL HISTORY: low o2. TECHNIQUE: Multiaxial CT images of the chest were performed without contrast. A dose lowering techni que was utilized adhering to the principles of ALARA. COMPARISON STUDY: Chest x-ray earlier today FINDINGS: There is mild motion artifact due to difficulty breath holding. There are trace airway secr etions in the lower lobe bronchi. There are scattered patchy predominantly groundglass opacities at b ilateral lower lobes, right middle lobe, and lingula consistent with pneumonia. No lobar consolidatio n or pleural effusion. No pneumothorax. No enlarged adenopathy. No pericardial effusion. Lower thorac ic spine neurostimulator lead is present. No acute osseous findings. IMPRESSION: Early bilateral pneumonia. Recommend follow-up chest CT in 3 months to make sure this com pletely resolves without underlying pulmonary nodule. ACT 112: Positive. There are findings on this exam that require communication between the performing entity and the patient following Patient Test Result Information Act ([place] Act 112) guidelines. Electronically signed by: Osmel Jennings M.D. 05/19/2025 8:08 AM
[2025-05-19 08:25] LABS: Thyroid Stimulating Hormone 4.373 uIu/ml (0.300-4.500)
--- NOTE | 2025-05-19 08:32 | CT Scan Report ---
ABDOMEN AND PELVIS CT WITHOUT CONTRAST CT DOSE: 1803 HISTORY: back pain, recent surg TECHNIQUE: Multiaxial CT images of the abdomen and pelvis were performed without contrast. A dose lo wering technique was utilized adhering to the principles of ALARA. COMPARISON STUDY: 05/10/2025 FINDINGS: ABDOMEN: Gallbladder is surgically absent. Stable nodular contour of the liver consistent with cirrho sis. Stable mild splenomegaly measuring 15 cm, consistent with portal hypertension. Stable left upper quadrant varices. No ascites. Pancreas, and adrenal glands have an unremarkable noncontrast appearan ce. Kidneys show no hydronephrosis or calculi. There are minimal atherosclerotic calcifications. No a bdominal aortic aneurysm. Pelvis: Prostate is not significantly enlarged. Urinary bladder is mildly distended. There is diffuse colonic wall thickening most prominent from the hepatic flexure to the rectum with mild inflammation consistent with diffuse colitis. No other bowel inflammation or obstruction seen. No free fluid, zena e air, or abscess. No enlarged adenopathy. Osseous structures: Stable laminectomy and posterior metallic fusion at L4-5. Stable lower thoracic s pine neurostimulator. The prior soft tissue gas has resolved. No subcutaneous fluid collection or abs cess seen. Stable lower lumbar degenerative changes. No acute osseous findings. IMPRESSION: 1. Diffuse colitis without bowel obstruction or perforation. 2. Otherwise as described. ACT 112: Negative or not required by law. The above report was generated using voice recognition software. It may contain grammatical, syntax o r spelling errors. Electronically signed by: Osmel Jennings M.D. 05/19/2025 8:30 AM
[2025-05-19 09:42] LABS: Base Excess VBG -3.1 mEq/L; HCO3 VBG 24 mmol/L; Oxygen Saturation VBG 87.2 %; PCO2 VBG 50 mmHg (38-50); PO2 VBG 55 mmHg; pH VBG 7.29 (7.36-7.41)
[2025-05-19] MEDS: dexAMETHasone 6 MG in SYRINGE 0 ML IV SCH (09:47)
[2025-05-19 14:17] LABS: Appearance Urine Clear (Clear); Bacteria Urine Automated None Seen (None Seen); Epithelial Cell Urine Auto 0-2 /hpf (0-2); Glucose Urine UA Negative (Negative); RBC Urine Automated 0-2 /hpf (0-2); WBC Urine Automated 0-5 /hpf (0-5)
--- NOTE | 2025-05-19 14:31 | XCELERA ---
[id number]
[2025-05-19] MEDS: ADVANCED PROBIOTIC 625 MG CAPSULE PO SCH (14:35)
[2025-05-19] MEDS: CEFEPIME 2000MG 2,000 MG/20 ML SYR IV SCH (14:35)
[2025-05-19] MEDS: BUPRENORPHINE/NALOXONE 8/2 MG TAB SL SCH (14:35)
[2025-05-19] MEDS: metroNIDAZOLE 500 MG/100 ML BAG IV SCH (14:39)
[2025-05-19 14:44] LABS: Amphetamines+Metham, Urine Neg (Neg); MDMA (Ecstacy), Urine Neg (Neg); Marijuana, Urine Pos (Neg)
[2025-05-19] MEDS: VANCOMYCIN HCL 1,500 MG in SODIUM CHLORIDE 0.9% 500 ML IV SCH (19:55)
--- NOTE | 2025-05-19 21:29 | Electrocardiogram Report ---
Test Reason : Blood Pressure : */* mmHG Vent. Rate : 98 BPM Atrial Rate : 98 BPM P-R Int : 124 ms QRS Dur : 86 ms QT Int : 340 ms P-R-T Axes : 55 28 58 degrees QTcB Int : 434 ms Normal sinus rhythm Normal ECG When compared with ECG of 11-Apr-2025 12:11, Vent. rate has increased by 38 bpm Confirmed by Heber Garcia ([id number]) on 05/19/2025 9:28:57 PM Referred By: REFERRED SELF Confirmed By: Heber Gacria
[2025-05-20 07:20] LABS: Alanine Aminotransferase 96.0 U/L (7-52); Albumin Globulin Ratio 1.5 (0.9-2); Albumin Level 3.5 gm/dl (3.4-5.0); Alkaline Phosphatase 57.0 U/L (34-104); Anion Gap 6.0 (3-11); Bilirubin,Total 1.1 mg/dl (0.2-1.0); Blood Urea Nitrogen 13.0 mg/dl (6-23); Calcium 8.6 mg/dl (8.6-10.3); Carbon Dioxide 26.0 mmol/L (21-32); Chloride 104.0 mmol/L (98-107); Creatinine Clr Calc Pharmacy 175.6 ml/min; Globulin 2.4 gm/dl (2.5-4.0); Glucose 141.0 mg/dl (70-99(Fasting)); Magnesium 2.3 mg/dl (1.7-2.4); Potassium 4.6 mmol/L (3.5-5.1); Sodium 136.0 mmol/L (136-145); Total Protein 5.9 gm/dl (6.0-8.3)
[2025-05-20 07:46] LABS: Hematocrit (blood only) 36.8 % (42.0-52.0); Hemoglobin 12.4 g/dl (14.0-18.0); Mean Corpuscular Hemoglobin 28.8 pg (25.0-34.0); Mean Corpuscular Volume 85.6 fL (80.0-100.0); Platelet Count 128 K/uL (130-400); RDW Standard Deviation 41.5 fL (36.4-46.3); Red Blood Count 4.30 M/uL (4.70-6.10); White Blood Count 23.10 K/ul (4.8-10.8)
[2025-05-20 07:47] LABS: Dohle Bodies 1+; Immature Granulocytes # (auto) 0.12 K/uL (0.01-0.20); Immature Granulocytes % (auto) 0.5 %
--- NOTE | 2025-05-20 09:45 | Hospitalist Progress Note ---
Date of Service May 20, 2025 Assessment & Plan (1) Severe sepsis: Plan: Per admitting provider w/ addendum: Concern for Severe sepsis SIRS plus ARF plus lactic acidosis source to be determined HCAP Complicated UTI Postop back infection, recent surgery C. difficile - negative + COVID, COVID pna, diarrhea possibly d/t covid Hypotension, troponin elevation secondary to illness Transient hypoxemia rule out pneumonia Transaminitis, hx HCV cirrhosis status post treatment, patient without abdominal pain complaints chronic back pain on Suboxone hypothyroidism, euthyroid as of current TSH past history of opioid abuse past tobacco abuse Was admitted to PCU given hypotension CS, stool C. difficile Blood culture - negat. in 24 hrs Stool PCR negative, c. diff negative UA negat. Resp. Biofire + COVID Cont. vanco, cefepime, flagyl, for now Was also started on dexamethasone given + COVID, will consider also remdesivir Held multiple antihypertensive medications on admission given hypotension. troponin elevated, downtrended, TTE obtained - LV EF 55-60%, RV cavity is normal, RV syst. function is normal, There is mild tricuspid regurg. Supplemental O2 Baseline VBG Pt needed bipap soon after admission, then down to 2l of NC, currently on RA, will cont. to closely monitor CT chest re: hypoxemia FINDINGS: There is mild motion artifact due to difficulty breath holding. There are trace airway secretions in the lower lobe bronchi. There are scattered patchy predominantly groundglass opacities at bilateral lower lobes, right middle lobe, and lingula consistent with pneumonia. No lobar consolidation or pleural effusion. No pneumothorax. No enlarged adenopathy. No pericardial effusion. Lower thoracic spine neurostimulator lead is present. No acute osseous findings. IMPRESSION: Early bilateral pneumonia. Recommend follow-up chest CT in 3 months to make sure this completely resolves without underlying pulmonary nodule. CT abdomen pelvis re: postop back pain 1. Diffuse colitis without bowel obstruction or perforation. Stable lower thoracic spine neurostimulator. The prior soft tissue gas has resolved. No subcutaneous fluid collection or abscess seen. DVT prophylaxis. lovenox Full code Admission and Anticipated Discharge Date Admission Date: May 19, 2025 Subjective Pt seen in follow up Was admitted lethargic, pre-syncope/ syncope episode, reported a lot of diarrhea, was treated as sepsis Recently admitted for spinal simulator exchange Found to be positive for COVID Initially on bipap, today sitting up in bed in NAD, awake, alert, able to answer questions appropriately Currently states overall feels much better, he is not sure what happened to him, denies any blood in the stool, says he was doing fairly ok after his procedure, this came kind of sudden Review of Systems Review of Systems: All systems reviewed & are unremarkable except as noted in Subjective Physical Exam Physical Exam: GENERAL: WD/WN M in NAD SKIN: Normal color, warm HEENT: NC/AT NECK : Supple CHEST : Decreased breath sounds, no tenderness HEART : RRR, no obvious murmurs ABDOMEN: Some distention, nontender EXTREMITIES : no LE edema, moves extremities NEUROLOGIC : awake, alert, able to answer simple questions appropriately, no facial asymmetry, moves extremities Results & Data Results & Data Vital Signs (Past 12 Hours) Vital Signs Temp Pulse Pulse Resp BP Pulse Ox O2 Del Method 05/20/25 08:14 36.5 C 88 16 167/88 H 94 Room Air 05/20/25 00:00 36.7 C 84 17 139/70 92 Room Air 05/19/25 22:42 88 Laboratory Results 05/20/25 05/19/25 05/19/25 Range/Units 06:30 13:42 12:27 WBC 23.10 H (4.8-10.8) K/ul RBC 4.30 L (4.70-6.10) M/uL Hgb 12.4 L D (14.0-18.0) g/dl Hct 36.8 L (42.0-52.0) % MCV 85.6 (80.0-100.0) fL MCH 28.8 (25.0-34.0) pg MCHC 33.7 (32.0-36.0) g/dL RDW Std Deviation 41.5 (36.4-46.3) fL RDW Coeff of [place] 13.4 (11.5-14.5) % Plt Count 128 L D (130-400) K/uL MPV 10.9 (9.4-12.4) fL Immature Gran % (Auto) 0.5 % Neut % (Auto) 91.2 % Lymph % (Auto) 4.0 % [place] % (Auto) 4.1 % Eos % (Auto) 0.0 % Baso % (Auto) 0.2 % Neut # (Auto) 21.06 H (1.40-6.50) K/uL Lymph # (Auto) 0.93 L (1.20-3.40) K/uL [place] # (Auto) 0.95 H (0.11-0.59) K/uL Eos # (Auto) 0.00 (0.00-0.50) K/uL Baso # (Auto) 0.04 (0.00-0.20) K/uL Immature Gran # (Auto) 0.12 (0.01-0.20) K/uL Dohle Bodies 1+ VBG pH (7.36-7.41) VBG pCO2 (38-50) mmHg VBG pO2 mmHg VBG HCO3 mmol/L VBG O2 Saturation % VBG Base Excess mEq/L Sodium 136 (136-145) mmol/L Potassium 4.6 (3.5-5.1) mmol/L Chloride 104 (98-107) mmol/L Carbon Dioxide 26 (21-32) mmol/L Anion Gap 6 (3-11) BUN 13 (6-23) mg/dl Creatinine 0.63 D (0.6-1.4) mg/dl Est Cr Clr Drug Dosing 175.6 ml/min eGFR 114.45 BUN/Creatinine Ratio 20.6 H (10-20) Glucose 141 H (70-99(Fasting)) mg/dl Calcium 8.6 (8.6-10.3) mg/dl Phosphorus 2.4 L (2.5-4.9) mg/dl Magnesium 2.3 (1.7-2.4) mg/dl Total Bilirubin 1.1 H (0.2-1.0) mg/dl AST 68 H (13-39) U/L ALT 96 H (7-52) U/L Alkaline Phosphatase 57 (34-104) U/L Troponin I High Sens 119.5 H* D (0-20) pg/ml Total Protein 5.9 L D (6.0-8.3) gm/dl Albumin 3.5 (3.4-5.0) gm/dl Globulin 2.4 L (2.5-4.0) gm/dl Albumin/Globulin Ratio 1.5 (0.9-2) Urine Color Dark Yellow Urine Appearance Clear (Clear) Urine pH 5.0 (4.5-7.5) Ur Specific [place] 1.015 (1.000-1.030) Urine Protein 1+ H (Negative) Urine Glucose (UA) Negative (Negative) Urine Ketones Trace H (Negative) Urine Blood Negative (Negative) Urine Nitrite Negative (Negative) Urine Bilirubin 1+ H (Negative) Urine Urobilinogen Negative (Negative) Ur Leukocyte Esterase Trace H (Negative) Urine WBC (Auto) 0-5 (0-5) /hpf Urine RBC (Auto) 0-2 (0-2) /hpf U Hyaline Cast (Auto) 6-10 H (0-2) /lpf U Epithel Cells (Auto) 0-2 (0-2) /hpf Urine Bacteria (Auto) None Seen (None Seen) Hyaline Casts Present A (None Presnt) /lpf Granular Casts Present A (None Prsent) /lpf Urine Comment Urine Opiates Screen Neg (Neg) Ur Methadone, Qual Neg (Neg) Urine Fentanyl Screen Neg (Neg) Urine Barbiturates Neg (Neg) Ur Phencyclidine (PCP) Neg (Neg) U Amphetamin/Meth Scrn Neg (Neg) MDMA (Ecstasy) Screen Neg (Neg) U Benzodiazepines Scrn Neg (Neg) Ur Cocaine Metabolite Neg (Neg) U Marijuana (THC) Screen Pos H (Neg) U Marijuana THC Carboxy Pending Drug Screen Comment Pending 05/19/25 Range/Units 09:34 WBC (4.8-10.8) K/ul RBC (4.70-6.10) M/uL Hgb (14.0-18.0) g/dl Hct (42.0-52.0) % MCV (80.0-100.0) fL MCH (25.0-34.0) pg MCHC (32.0-36.0) g/dL RDW Std Deviation (36.4-46.3) fL RDW Coeff of [place] (11.5-14.5) % Plt Count (130-400) K/uL MPV (9.4-12.4) fL Immature Gran % (Auto) % Neut % (Auto) % Lymph % (Auto) % [place] % (Auto) % Eos % (Auto) % Baso % (Auto) % Neut # (Auto) (1.40-6.50) K/uL Lymph # (Auto) (1.20-3.40) K/uL [place] # (Auto) (0.11-0.59) K/uL Eos # (Auto) (0.00-0.50) K/uL Baso # (Auto) (0.00-0.20) K/uL Immature Gran # (Auto) (0.01-0.20) K/uL Dohle Bodies VBG pH 7.29 L (7.36-7.41) VBG pCO2 50 (38-50) mmHg VBG pO2 55 mmHg VBG HCO3 24 mmol/L VBG O2 Saturation 87.2 % VBG Base Excess -3.1 mEq/L Sodium (136-145) mmol/L Potassium (3.5-5.1) mmol/L Chloride (98-107) mmol/L Carbon Dioxide (21-32) mmol/L Anion Gap (3-11) BUN (6-23) mg/dl Creatinine (0.6-1.4) mg/dl Est Cr Clr Drug Dosing ml/min eGFR BUN/Creatinine Ratio (10-20) Glucose (70-99(Fasting)) mg/dl Calcium (8.6-10.3) mg/dl Phosphorus (2.5-4.9) mg/dl Magnesium (1.7-2.4) mg/dl Total Bilirubin (0.2-1.0) mg/dl AST (13-39) U/L ALT (7-52) U/L Alkaline Phosphatase (34-104) U/L Troponin I High Sens (0-20) pg/ml Total Protein (6.0-8.3) gm/dl Albumin (3.4-5.0) gm/dl Globulin (2.5-4.0) gm/dl Albumin/Globulin Ratio (0.9-2) Urine Color Urine Appearance (Clear) Urine pH (4.5-7.5) Ur Specific [place] (1.000-1.030) Urine Protein (Negative) Urine Glucose (UA) (Negative) Urine Ketones (Negative) Urine Blood (Negative) Urine Nitrite (Negative) Urine Bilirubin (Negative) Urine Urobilinogen (Negative) Ur Leukocyte Esterase (Negative) Urine WBC (Auto) (0-5) /hpf Urine RBC (Auto) (0-2) /hpf U Hyaline Cast (Auto) (0-2) /lpf U Epithel Cells (Auto) (0-2) /hpf Urine Bacteria (Auto) (None Seen) Hyaline Casts (None Presnt) /lpf Granular Casts (None Prsent) /lpf Urine Comment Urine Opiates Screen (Neg) Ur Methadone, Qual (Neg) Urine Fentanyl Screen (Neg) Urine Barbiturates (Neg) Ur Phencyclidine (PCP) (Neg) U Amphetamin/Meth Scrn (Neg) MDMA (Ecstasy) Screen (Neg) U Benzodiazepines Scrn (Neg) Ur Cocaine Metabolite (Neg) U Marijuana (THC) Screen (Neg) U Marijuana THC Carboxy Drug Screen Comment Medications Administered Current Inpatient Medications Acetaminophen (Acetaminophen 500 Mg Tab) 500 mg PO Q6H PRN PRN Reason: fever/pain Stop: 06/18/25 07:05 Buprenorphine/Naloxone (Buprenorphine/Naloxone 8/2 Mg Tab) 1 tab SL TID JULEE Stop: 06/18/25 13:59 Last Admin: 05/20/25 07:53 Dose: 1 tab Promethazine HCl (Phenergan) 12.5 mg in 50.5 mls @ 202 mls/hr IV Q6H PRN PRN Reason: Nausea And Vomiting Stop: 06/18/25 07:05 Dexamethasone 6 mg/ Syringe 1.5 mls @ 1 mls/min IV DAILY JULEE Stop: 05/29/25 08:19 Last Admin: 05/19/25 09:47 Dose: 1 mls/min Cefepime HCl (Maxipime 2000mg) 2,000 mg in 20 mls @ 5 mls/min IV Q8H [facility]; Protocol Stop: 05/21/25 13:59 Last Admin: 05/20/25 06:11 Dose: 5 mls/min Metronidazole (Flagyl) 500 mg in 100 mls @ 100 mls/hr IV Q8H [facility]; Protocol Stop: 05/23/25 13:59 Last Infusion: 05/20/25 07:45 Dose: Infused Vancomycin HCl 1,750 mg/ (Sodium Chloride) 535 mls @ 200 mls/hr IV Q12H JULEE Stop: 05/28/25 09:00 Remdesivir 200 mg/ Sodium (Chloride) 250 mls @ 125 mls/hr IV ONE STA Stop: 05/20/25 11:26 Remdesivir 100 mg/ Sodium (Chloride) 250 mls @ 250 mls/hr IV Q24H JULEE Stop: 05/24/25 10:29 Lactobacillus Acidophilus (Advanced Probiotic 625 Mg Capsule) 1,250 mg PO DAILY JULEE Stop: 06/18/25 13:29 Last Admin: 05/20/25 07:53 Dose: 1,250 mg Miscellaneous Information (Vancomycin Consult Active) 1 each N/A UD PRN PRN Reason: Consult Stop: 06/18/25 13:26
[2025-05-20] MEDS: ENOXAPARIN INJ 40 MG/0.4 ML SYR SQ SCH (10:07)
[2025-05-20] MEDS: ACETAMINOPHEN 500 MG TAB PO PRN (10:07)
[2025-05-20] MEDS: VANCOMYCIN HCL 1,750 MG in SODIUM CHLORIDE 0.9% 500 ML IV SCH (10:08)
--- NOTE | 2025-05-20 10:53 | Pharmacy Report ---
Pharmacy PK ABX Note - Date of Service May 20, 2025 - Assessment and Plan Assessment 50 year old M receiving vancomycin, cefepime, and metronidazole for treatment of sepsis of unknown source. He presented 05/19 with hypotension, lethargy, leukocytosis, lactate of 4.5, an SRINIVAS, and hypothermia. Potential sources are HCAP, complicated UTI, postop back infection (recent surgery 04/2025), or C. diff (pt reports large/frequent episodes of diarrhea). Pertinent microbiologic data includes: * Stool study including C. diff was negative * Respiratory biofire was POSITIVE for COVID. Dexamethasone and remdesivir started. * Preliminary blood cultures from 05/19 are no growth to date Day # 2 of antimicrobial therapy. Plan Vancomycin * Loading dose: 2750 mg IV x 1 * Maintenance dose: originally 1500 mg IV every 24 hours, but renal function improved back to baseline today (SCr 0.63mg/dL) so the vancomycin was increased to 1750mg iv q 12 hours * Regimen is predicted to achieve target AUC/KLEBER of 400-600 mg/L.hr * Random level ordered for: 05/21 at 0830 Pharmacy will continue to follow and will adjust dose/frequency as necessary. Thank you. Pharmacy has transitioned to AUC monitoring for vancomycin. AUC/KLEBER is the preferred PK/PD target and is associated with decreased risk of nephrotoxicity compared to traditional trough targets.
[2025-05-20] MEDS: REMDESIVIR 200 MG in SODIUM CHLORIDE 0.9% 210 ML IV STA (11:25)
[2025-05-20] MEDS: GABAPENTIN 300 MG CAP PO ONE (11:25)
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
[2025-05-21 07:49] VITALS: TEMP 97.9; O2SAT 95
[2025-05-21] MEDS: VANCOMYCIN LEVEL ONE (08:50)
[2025-05-21 09:01] LABS: Hematocrit (blood only) 35.4 % (42.0-52.0); Hemoglobin 11.8 g/dl (14.0-18.0); Mean Corpuscular Hemoglobin 28.8 pg (25.0-34.0); Mean Corpuscular Volume 86.3 fL (80.0-100.0); Platelet Count 113 K/uL (130-400); RDW Standard Deviation 41.5 fL (36.4-46.3); Red Blood Count 4.10 M/uL (4.70-6.10); White Blood Count 18.90 K/ul (4.8-10.8)
[2025-05-21] MEDS: REMDESIVIR 100 MG in SODIUM CHLORIDE 0.9% 230 ML IV SCH (09:01)
[2025-05-21 09:16] LABS: Alanine Aminotransferase 109.0 U/L (7-52); Albumin Globulin Ratio 1.4 (0.9-2); Albumin Level 3.7 gm/dl (3.4-5.0); Alkaline Phosphatase 63.0 U/L (34-104); Anion Gap 7.0 (3-11); Bilirubin,Total 0.9 mg/dl (0.2-1.0); Blood Urea Nitrogen 12.0 mg/dl (6-23); Calcium 9.0 mg/dl (8.6-10.3); Carbon Dioxide 27.0 mmol/L (21-32); Chloride 102.0 mmol/L (98-107); Creatinine Clr Calc Pharmacy 197.5 ml/min; Globulin 2.6 gm/dl (2.5-4.0); Glucose 134.0 mg/dl (70-99(Fasting)); Magnesium 1.9 mg/dl (1.7-2.4); Potassium 4.4 mmol/L (3.5-5.1); Sodium 136.0 mmol/L (136-145); Total Protein 6.3 gm/dl (6.0-8.3)
--- NOTE | 2025-05-21 10:38 | Gastroenterology Progress Note ---
Date of Service May 21, 2025 Assessment & Plan (1) Colitis: (2) Diarrhea: Plan Patient has seen an improvement in his symptoms from a GI standpoint. Suspect that colitis is secondary to his covid infection. - he requests discharge to home. Okay from a GI standpoint. - recommend that he follow with his usual GI team at [facility] on discharge. -GI will sign off, contact us with further concerns. Admission and Anticipated Discharge Date Admission Date: May 19, 2025 Supervising Physician Co-Signing Physician Notes I saw and examined this patient with our nurse practitioner and agree with her assessment and plan. Patient discharged prior to rounds today. Subjective Patient tells me that diarrhea is now resolving. no rectal bleeding or melena. he has not had further nausea or vomiting. the remaining GI ros are unremarkable. Patient is requesting discharge to home. discussed with nursing, no new GI concerns. currently they are monitoring him due to new bradycardia. Review of Systems Review of Systems: All systems reviewed & are unremarkable except as noted in HPI & below Physical Exam Constitutional: WD/WN, vitals as above Respiratory: normal respiratory effort, lungs clear to auscultation Cardiovascular: Rate/Rhythm: regular rate and regular rhythm Gastrointestinal (Abdomen): normal bowel sounds, soft, nontender, no hepatosplenomegaly Psychiatric: Orientation: alert and oriented x 3 Results & Data Results & Data Vital Signs (Past 12 Hours) Vital Signs Temp Pulse Pulse Resp BP Pulse Ox O2 Del Method 05/21/25 09:40 Room Air 05/21/25 07:15 97.9 F 67 16 134/84 95 Room Air 05/21/25 06:10 98.2 F 80 16 146/73 H 94 Room Air 05/21/25 00:00 80 05/20/25 23:56 97.9 F 88 17 147/70 H 93 Room Air Coding Level of Care Code 45265 SUB INP/OBS CARE 08/11MIN Diagnoses Colitis K52.9 Diarrhea R19.7
[2025-05-21 12:09] VITALS: BP 177/77; PULSE 68; RESP 18
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
[2025-05-23 16:12] LABS: Marijuana Quant, GCMS Urine 669 ng/mL (<5)
== END 2025-05-21 13:14 | disposition home or self-care (01) | DRG 871 ==
LOC: ED 03:28 → 2S 06:46